=== PATIENT | female | born 1960 | race Asian ===

== ENCOUNTER 2019-05-29 12:06 | Emergency (ER) | payer OTHER ==
[~2019-05-29] VITALS: Ht 157.5 cm; Wt 67.3 kg
[~2019-05-29 12:06] MED LIST: HYDR-4011 PO; IBUP-1542 PO
[2019-05-29 12:13] VITALS: Ht 157.5 cm; Wt 67.3 kg
--- NOTE | 2019-05-29 12:22 | EN ---
Date/Time of Note Date/Time of Note DATE: 05/29/19 TIME: 12:21 ER Progress Note Quick RME note: Medical screening exam was initiated and lab/imaging studies were ordered. Patient will be seen in ED 2 by another provider. HPI: Patient is a 58-year-old female presents to the ER for concerns of trip and fall injury while getting out of the elevator earlier today. Patient states she has pain to her left ankle. Patient is unable to bear weight to the affected extremity. Patient has swelling ankle joint. Patient not taking any medications. Patient denies head injury. Patient denies loss of consciousness. Physical exam: RLE: No deformity. Swelling noted throughout the lateral ankle. Tender to pal pation of the lateral ankle. Skin is intact. Sensation intact to light touch. Neurovascularly intact. (Able to plantarflex, dorsiflex, kasie foot, invert foot, raise big toe.) 2+ DP and DT pulses. Orders placed: Left ankle series and ibuprofen DONAVAN GODDARD PA-C May 29, 2019 12:22
[2019-05-29] MEDS ORDERED: IBUPROFEN 600 MG TAB PO ONE (12:30)
[2019-05-29] MEDS ORDERED: HYDROCODONE/APAP (5/325) TAB PO ONE (12:30)
--- NOTE | 2019-05-29 13:17 | ERD ---
ER Documentation Chief Complaint [facility] Complaint [facility] +ROM, +swelling. HPI 58-year-old female states she was getting out of an elevator today and she missed stepped and fell and twisted her left ankle. She now has pain in the left lateral ankle. She also scraped her knee and has pain in her left shoulder but does symptoms are mild. She did states she hit her head but did not lose consciousness and has no severe headache. No neck pain. No vomiting. ROS All systems reviewed and are negative except as per history of present illness. Allergies Allergies: Coded Allergies: doxycycline (Verified Allergy, Unknown, 05/29/19) PMhx/Soc Hx Alcohol Use: Yes (social) Hx Substance Use: No Hx Tobacco Use: No Smoking Status: Never smoker FmHx Family History: No diabetes Physical Exam Vitals Vital Signs Date Temp Pulse Resp B/P (MAP) Pulse Ox O2 O2 Flow FiO2 Time Delivery Rate 05/29/19 98.7 73 18 140/79 98 12:13 (99) Physical Exam Const: No acute distress Head: Atraumatic Eyes: Normal Conjunctiva ENT: Normal External Ears, Nose and Mouth. Neck: Full range of motion. No meningismus. Resp: Clear to auscultation bilaterally Cardio: Regular rate and rhythm, no murmurs Left shoulder: Full range of motion, no clavicular tenderness or tenting, nontender throughout, sensation to light touch is intact throughout Right knee: Abrasion to the anterior surface, no deep lacerations, no active bleeding, full range of motion, nontender, sensation to light touch is intact Left ankle: Left lateral malleoli are swelling and tenderness, no bony abnormali ties, sensation to light touch is intact, pedal pulse 2+, capillary refill less than 2 seconds NEUROLOGIC: Normal mental status and speech. Face is symmetric. Moves all extremities equally. Motor and sensory distally intact. Normal coordination. Results 24 hrs Current Medications Medications Dose Sig/Flakita Start Time Status Last (Trade) Ordered Route PRN Stop Time Admin Dose Reason Admin Ibuprofen 600 mg ONCE ONCE 05/29/19 Cancel (Motrin) PO 12:30 05/29/19 12:31 1 tab ONCE ONCE 05/29/19 DC 05/29/19 Acetaminophen PO 12:30 05/29/19 12:27 / 12:31 Hydrocodone Bitart ([place] (5/325)) Procedures/MDM 58-year-old female presents with ankle pain after trauma. X-ray does reveal a small avulsion fracture. She is placed in a posterior ankle splint and given crutches and outpatient referral to orthopedics and prescription for pain medication. She is neurovascularly intact. Patient counseled regarding my diagnostic impression and care plan. Prior to discharge all questions answered. Pt agrees with treatment plan and understands strict return precautions. Pt is instructed to follow up with primary care provider within 24-48 hours. Precautionary instructions provided including instructions to return to the ER if not improving or for any worsening or changing symptoms or concerns. Departure Diagnosis: Primary Impression: Ankle fracture Condition: Stable NICOLA JONES PA-C May 29, 2019 13:17
[2019-05-29 14:08] VITALS: BP 115/69; PULSE 75; RESP 18
== END 2019-05-29 14:09 | disposition home or self-care (01) ==
LOC: FTE 12:06
DX: S82.62XA Displaced fracture of lateral malleolus of left fibula, initial encounter for closed fracture (principal); X50.1XXA Overexertion from prolonged static or awkward postures, initial encounter; Y92.9 Unspecified place or not applicable
CPT/HCPCS: 73610